=== PATIENT | female | born 1960 | race Caucasian/White ===

== ENCOUNTER 2021-04-25 19:50 | Emergency (ER) | payer SELFPAY ==
[~2021-04-25] VITALS: Ht 165.1 cm; Wt 69.5 kg
--- NOTE | 2021-04-25 20:06 | PHYS DOC ---
General Adult EDM: Chief Complaint: NAUSEA/VOMITING/DIARRHEA HPI: HPI: Patient is a 60 year old female who presents the ED today complaining of nausea and vomiting, subjective fevers, body aches, symptoms began this morning when she woke up. Patient states she did not receive COVID19 vaccine or flu vaccine (KELLY SINGH APRN) Review of Systems: Review of Systems: Constitutional: Reports body aches, fevers Eyes: Denies change in visual acuity. [] HENT: Denies nasal congestion or sore throat. [] Respiratory: Denies cough or shortness of breath. [] Cardiovascular: Denies chest pain or edema. [] GI: Reports nausea, vomiting. Denies abdominal pain, bloody stools or diarrhea. [] : Denies dysuria. [] Musculoskeletal: Denies back pain or joint pain. [] Integument: Denies rash. [] Neurologic: Denies headache, focal weakness or sensory changes. [] Psychiatric: Denies depression or anxiety. [] (KELLY SINGH TASSEL MAKING MACHINE OPERATOR) Heart Score: C/O Chest Pain: N/A Risk Factors: Risk Factors: DM, Current or recent (<one month) smoker, HTN, HLP, family history of CAD, obesity. Risk Scores: Score 0 - 3: 2.5% MACE over next 6 weeks - Discharge Home Score 4 - 6: 20.3% MACE over next 6 weeks - Admit for Clinical Observation Score 7 - 10: 72.7% MACE over next 6 weeks - Early Invasive Strategies (KELLY SINGH APRN) Current Medications: Current Medications Medications (Trade) Dose Ordered Sig/[facility] Start Time Stop Time Status Last Admin Dose Admin Acetaminophen (Tylenol) 1,000 mg 1X ONCE 04/25/21 20:15 04/25/21 20:16 UNV Ondansetron HCl (Zofran) 4 mg 1X ONCE 04/25/21 20:15 04/25/21 20:16 UNV Sodium Chloride 1,000 ml @ 1,000 mls/hr 1X ONCE 04/25/21 20:15 04/25/21 21:14 UNV (KELLY SINGH TASSEL MAKING MACHINE OPERATOR) Physical Exam: PE: Constitutional: Well developed, well nourished, no acute distress, non-toxic appearance. [] HENT: Normocephalic, atraumatic, bilateral external ears normal, oropharynx moist, no oral exudates, nose normal. [] Eyes: PERRLA, EOMI, conjunctiva normal, no discharge. [] Neck: Normal range of motion, no tenderness, supple, no stridor. [] Cardiovascular:Heart rate regular rhythm, no murmur [] Lungs & Thorax: Bilateral breath sounds clear to auscultation [] Abdomen: Bowel sounds normal, soft, no tenderness, no masses, no pulsatile masses. [] Skin: Warm, dry, no erythema, no rash. [] Back: No tenderness, no CVA tenderness. [] Extremities: No tenderness, no cyanosis, no clubbing, ROM intact, no edema. [] Neurologic: Alert and oriented X 3, normal motor function, normal sensory function, no focal deficits noted. [] Psychologic: Affect normal, judgement normal, mood normal. [] (KELLY SINGH APRN) EKG: EKG: [] (KELLY SINGH APRN) Radiology/Procedures: Radiology/Procedures: [] (KELLY SINGH APRN) Course & Med Decision Making: Course & Med Decision Making Pertinent Labs and Imaging studies reviewed. (See chart for details) This is a 60-year-old female patient presenting to the ED today with subjective fevers, nausea, vomiting, body aches, symptoms began this morning. Patient refused a Covid test and flu test, she states she believes we are taking this test to do DNA on her. CBC, CMP with no acute findings, UA negative for infection, noted for slight dehydration, given IV fluids and Zofran. Discharge to home with Zofran. (KELLY SINGH TASSEL MAKING MACHINE OPERATOR) Course & Med Decision Making Patients Care and treatment plan provided by ER Nurse Practitioner. I was not involved in this patients care but was available for consult. Patient's chart reviewed. (GAURAV GALLEGOS DO) Jayden Disclaimer: Jayden Disclaimer: This electronic medical record was generated, in whole or in part, using a voice recognition dictation system. (KELLY SINGH TASSEL MAKING MACHINE OPERATOR) Departure Departure Impression: Primary Impression: Nausea and vomiting Qualified Codes: R11.2 - Nausea with vomiting, unspecified Additional Impressions: Body aches Fever Qualified Codes: R50.9 - Fever, unspecified Disposition: 01 HOME / SELF CARE / HOMELESS Condition: STABLE Patient Instructions: Fever, Adult, [id number], Nausea and Vomiting, [id number] Additional Instructions: Your work-up in the emergency room is negative for any acute findings. We encourage you to rest, push fluids, take Tylenol or Motrin for pain or fever. Maintain good hand aging. Take Zofran for nausea or vomiting. Follow-up with your doctor next week Scripts Ondansetron (ONDANSETRON ODT) 4 Mg Tab.rapdis 1 TAB PO PRN Q6-8HRS, #16 TAB Prov: KELLY SINGH APRN 04/25/21 KELLY SINGH APRN Apr 25, 2021 20:06 GAURAV GALLEGOS DO Apr 27, 2021 18:04
[2021-04-25] MEDS ORDERED: ACETAMINOPHEN 500 MG TABLET PO ONE (20:15)
[2021-04-25] MEDS ORDERED: ONDANSETRON PF 4 MG/2 ML VIAL. IVP ONE (20:15)
[2021-04-25] MEDS ORDERED: IV NORMAL SALINE 1000ML BAG 1,000 ML IV ONE (20:15)
[2021-04-25 21:47] LABS: BILIRUBIN,URINE NEGATIVE (NEG); CLARITY,URINE HAZY; COLOR,URINE YELLOW; NITRITE,URINE NEGATIVE (NEG); PROTEIN,URINE 30 mg/dL (NEG-TRACE); UROBILINOGEN,URINE 0.2 mg/dL (0.2 mg/dL)
[2021-04-25 21:51] LABS: BACTERIA,URINE FEW /HPF (0-FEW)
[2021-04-25 22:13] LABS: BASO % 0 % (0-3); EOS % 0 % (0-3); HEMATOCRIT 45.4 % (36.0-47.0); LYMPH # 0.3 x10^3/uL (1.0-4.8); LYMPH % 7 % (24-48); MEAN CORPUSCULAR HEMOGLOBIN 31 pg (25-35); MEAN CORPUSCULAR HGB CONC 33 g/dL (31-37); MEAN CORPUSCULAR VOLUME 93 fL (79-100); MONO # 0.5 x10^3/uL (0.0-1.1); MONO % 10 % (0-9); NEUT # 4.2 x10^3/uL (1.8-7.7); NEUT % 84 % (31-73); PLATELET COUNT 143 x10^3/uL (140-400); RED BLOOD COUNT 4.87 x10^6/uL (3.50-5.40); RED CELL DISTRIBUTION WIDTH 13.6 % (11.5-14.5); WHITE BLOOD COUNT 5.1 x10^3/uL (4.0-11.0)
[2021-04-25 22:20] LABS: CALCIUM 9.1 mg/dL (8.5-10.1); CREATININE 0.7 mg/dL (0.6-1.0); GFR 85.1; POTASSIUM 4.1 mmol/L (3.5-5.1)
[2021-04-25 22:26] LABS: ALBUMIN 3.2 g/dL (3.4-5.0); ALBUMIN/GLOBULIN RATIO 0.9 (1.0-1.7); TOTAL BILIRUBIN 0.5 mg/dL (0.2-1.0); TOTAL PROTEIN 6.7 g/dL (6.4-8.2)
[2021-04-25] MEDS ORDERED: ONDA4TAB12 PO (22:37)
[2021-04-25 22:39] LABS: % BANDS 1 % (0-9); % LYMPHS 7 % (24-48); % MONOS 6 % (0-10); % SEGS 86 % (35-66); PLT ESTIMATE ADEQUATE (ADEQUATE)
[2021-04-25] MEDS ORDERED: KETOROLAC 15 MG/ML VIAL. IVP ONE (22:45)
[2021-04-25 22:50] VITALS: BP 143/70
== END 2021-04-25 22:55 | disposition home or self-care (01) ==
LOC: ER 19:50
DX: R11.2 Nausea with vomiting, unspecified (principal); M79.10 Myalgia, unspecified site; R50.9 Fever, unspecified
CPT/HCPCS: 36415; 80053; 81001; 83690; 85007; 85025; 96374; 96375; 99284; J1885; J2405; 96361